=== PATIENT | male | born 1950 | race Hispanic/Latino ===

== ENCOUNTER → 2017-12-09 | Outpatient (CLI) | payer OTHER | END | disposition home or self-care (01) | LOC: RAH 13:08 | PROVIDERS: ATTEND Internal Medicine | DX: R80.8 Other proteinuria (principal) | CPT/HCPCS: 76770 ==

== ENCOUNTER → 2017-12-12 | Outpatient (CLI) | payer OTHER ==
[2017-12-12 12:47] LABS: COLLECTION PERIOD,URINE 24 HR; TOTAL VOLUME 24HRS,URINE 2300 mL
[2017-12-12 12:59] LABS: TPROTEIN TIMED,URINE 98 mg/dL; TPROTEIN U,24HR CALC 2254 mg/24HR (0-165)
== END ==
LOC: LAB 10:33
PROVIDERS: ATTEND Internal Medicine
DX: R80.8 Other proteinuria (principal)
CPT/HCPCS: 36415; 82565; 82575; 84156

== ENCOUNTER → 2020-04-30 | Outpatient (CLI) | payer OTHER | END | disposition home or self-care (01) | LOC: RAH 09:45 | PROVIDERS: ATTEND Internal Medicine | DX: R91.8 Other nonspecific abnormal finding of lung field (principal); R06.02 Shortness of breath | CPT/HCPCS: 71046 ==

== ENCOUNTER → 2020-08-25 | Outpatient (CLI) | payer OTHER | END | disposition home or self-care (01) | LOC: RAH 09:03 | PROVIDERS: ATTEND Internal Medicine | DX: R91.8 Other nonspecific abnormal finding of lung field (principal); M47.815 Spondylosis without myelopathy or radiculopathy, thoracolumbar region; R91.1 Solitary pulmonary nodule; Z87.01 Personal history of pneumonia (recurrent) | CPT/HCPCS: 71046 ==

== ENCOUNTER → 2021-02-18 | Outpatient (CLI) | payer OTHER | END | disposition home or self-care (01) | LOC: RAH 13:12 | PROVIDERS: ATTEND Internal Medicine | DX: I67.82 Cerebral ischemia (principal) | CPT/HCPCS: 70450 ==

== ENCOUNTER 2022-12-06 12:54 | Emergency (ER) | payer OTHER ==
[~2022-12-06] VITALS: Ht 167.6 cm; Wt 90.7 kg
[2022-12-06] MEDS ORDERED: 0.9% NACL 500ML IV.SOLN 500 ML IV ONE (13:30)
[2022-12-06] MEDS ORDERED: ONDANSETRON 4MG INJ IVP ONE (13:30)
[2022-12-06] MEDS ORDERED: TETANUS/DIPHTHERIA TOXOID [ADULT] 0.5 ML VIAL IM ONE ×2 (13:30→13:53)
[2022-12-06] MEDS ORDERED: MORPHINE 4 MG SYG IVP ONE (13:30)
[2022-12-06] MEDS ORDERED: MORPHINE 4 MG SYG ONE (13:51)
[2022-12-06] MEDS ORDERED: CEFAZOLIN SODIUM 1 GM VIAL ONE (13:51)
[2022-12-06] MEDS ORDERED: ONDANSETRON 4MG INJ ONE (13:52)
[2022-12-06] MEDS: CEFAZOLIN SODIUM 1 GM VIAL IVP SCH ×2 (14:15→14:17)
[2022-12-06] MEDS ORDERED: IBUP-2070 PO (14:37)
[2022-12-06] MEDS ORDERED: AMOX1TAB16 PO (14:37)
[2022-12-06] MEDS ORDERED: BACI30OI6 TP (14:37)
[2022-12-06 16:04] VITALS: BP 136/62
== END 2022-12-06 16:04 | disposition home or self-care (01) ==
LOC: EDH 12:54
DX: S62.501B Fracture of unspecified phalanx of right thumb, initial encounter for open fracture (principal); E11.9 Type 2 diabetes mellitus without complications; Z79.899 Other long term (current) drug therapy; X58.XXXA Exposure to other specified factors, initial encounter; Y93.89 Activity, other specified; Y92.89 Other specified places as the place of occurrence of the external cause; Y99.8 Other external cause status
CPT/HCPCS: 99284; 96374; 96375; 90714; 73140; 90471; 12002; J0690; J2405; J2270

== ENCOUNTER → 2023-08-26 | Outpatient (CLI) | payer OTHER ==
[~2023-08-26] MED LIST: AMOX1TAB16 PO; BACI30OI6 TP; IBUP-2070 PO
== END | disposition home or self-care (01) ==
LOC: RAH 11:23
PROVIDERS: ATTEND Internal Medicine
DX: I65.23 Occlusion and stenosis of bilateral carotid arteries (principal); R42 Dizziness and giddiness
CPT/HCPCS: 93880